=== PATIENT | female | born 1955 | race African-American/Black ===

== ENCOUNTER → 2017-09-08 | Outpatient (CLI) | payer OTHER | LOC: FIMAGING 08:20 | DX: Z12.31 Encounter for screening mammogram for malignant neoplasm of breast (principal) ==

== ENCOUNTER 2018-06-09 20:52 | Observation (INO) | payer OTHER ==
--- NOTE | 2018-06-09 21:13 | EDPHY ---
H & P Stated Complaint: right side CP that radiates to right arm and jaw Time Seen by Provider: 06/09/18 21:13 - Personal History Current Tetanus/Diphtheria Vaccine: Yes Current Tetanus Diphtheria and Acellular Pertussis (TDAP): Yes - Medical/Surgical History Hx Asthma: No Hx Chronic Respiratory Disease: No Hx Diabetes: No Hx Cardiac Disease: Yes Hx Renal Disease: No Hx Cirrhosis: No Hx Alcoholism: No Hx HIV/AIDS: No Hx Splenectomy or Spleen Trauma: No Other PMH: dextrocardia with situs inversus, lupus, grave disease - Social History Smoking Status: Never smoked Constitutional: Initial Vital Signs Temperature (C) 37.0 C 06/09/18 20:53 Heart Rate 79 06/09/18 20:53 Respiratory Rate 16 06/09/18 20:53 Blood Pressure 164/99 H 06/09/18 20:53 O2 Sat (%) 94 06/09/18 20:53 O2 Delivery Mode Room Air Allergies/Adverse Reactions: No Known Allergies Allergy (Unverified 06/09/18 20:57) Home Medications: Medication Instructions Recorded Amlodipine Besylate 06/09/18 Medical Decision Making - Diagnostics Imaging Results: Imaging Impressions Chest X-Ray 06/09/18 21:15 Impression: No evidence for acute cardiopulmonary abnormality. Situs inversus. Imaging: I viewed and interpreted images myself ED Course/Re-evaluation: CHIEF COMPLAINT: Chest pain HISTORY OF PRESENT ILLNESS: The patient is a 62 y/o female with a history of dextrocardia with situs inversus, lupus, hypertension, and grave's disease complaining of chest pain radiating up her jaw and down her right arm onset 3-4 hours ago. These symptoms started when she was sitting down at rest. She then developed a tightness in the middle of her chest. Currently she has no pain. 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 No fever, headache, body aches, lightheadedness, chest pain, heart palpitations, shortness of breath, cough, abdominal pain, urinary or bowel complaints, numbness, paresthesias. REVIEW OF SYSTEMS: A comprehensive 10 system review of systems is otherwise negative aside from elements mentioned in the history of present illness and medical decision making. PHYSICAL EXAM: HR, BP, O2 Sat, RR. Temp noted General Appearance: Alert, well hydrated, appropriate, and non-toxic appearing. Head: Atraumatic without scalp tenderness or obvious injury Eyes: Pupils equal, round, reactive to light and accommodation, EOMI, no trauma , no injection. Ears: Clear bilaterally, no perforation, normal landmarks Nose: Atraumatic, no rhinorrhea, clear. Throat: There is no erythema or exudates, no lesions, normal tonsils, mucus membranes moist. Neck: Supple, 2+ carotid upstroke, nontender, no lymphadenopathy. Respiratory: No retractions, no distress, no wheezes, and no accessory muscle use. Lungs are clear to auscultation bilaterally. Cardiovascular: Regular rate and rhythm, no murmurs, rubs, or gallops. Bilateral carotid, radial, dorsalis pedis, and posterior tibial pulses intact. Good capillary refill all extremities. Gastrointestinal: Abdomen is soft, nontender, non-distended, no masses, no rebound, no guarding, no peritoneal signs. Musculoskeletal: Normal active ROM of all extremities, atraumatic. Neurological: Alert, appropriate, and interactive. The patient has normal DTRs and non-focal cranial nerves, motor, sensory, and cerebellar exam. Skin: No rashes, good turgor, no nodules on palpation. Past medical history: Dextrocardia with situs inversus, lupus, grave disease, hypertension Past surgical history: Denies Family history: Father had [place] Social history: at bedside, employed, lives in [place] DIAGNOSTICS/PROCEDURES/CRITICAL CARE TIME: EKG: The 12 lead EKG was interpreted by myself as sinus rhythm with a rate of [address] elevation. See hard copy and/or "tracemaster" electronic copy for interpretation. EKG with switched leads: EKG: The 12 lead EKG was interpreted by myself as sinus rhythm with a rate of 75. See hard copy and/or "tracemaster" electronic copy for interpretation. Chest x-ray: No evidence for acute cardiopulmonary abnormality. Situs inversus. DIFFERENTIAL DIAGNOSIS: The differential diagnosis for the patient's chest pain included but was not limited to myocardial ischemia, pulmonary embolus, chest wall pain, pleural inflammation, and pulmonary infectious causes. MEDICAL DECISION MAKING: The patient is a 62 y/o female with a history of dextrocardia with situs inversus, lupus, hypertension and grave's disease presenting with chest pain radiating up her jaw and down her right arm onset 3-4 hours ago. These symptoms started when she was sitting down at rest. She then developed a tightness in the middle of her chest. Currently she has no pain. She has a normal physical exam. Labs, chest x-ray, and EKG ordered; 324mg PO Aspirin administered. 2121: I reviewed patient's EKG as sinus rhythm with a rate of [address] elevation. Troponin and chest x-ray still pending. 2140: Patient's troponin is 0; I will page the armorer technician regarding this patient. 2141: I consulted with Dr. Wing, armorer technician, regarding this patient. He will consult on this patient during her admission. We will repeat the EKG with switched leads. 2150: Patient's repeat EKG reveals sinus rhythm with a rate of 75. 2210: I consulted with the hospitalist service, Dr. Copeland accepts admission of this patient. 5: Reassessed patient and discussed imaging and laboratory findings. I have also discussed plan for admission, which she is comfortable with. - Data Points Laboratory Results: Laboratory Results 06/09/18 21:30 06/09/18 21:30 06/09/18 06/09/18 06/09/18 21:31 21:30 21:30 WBC RBC Hgb Hct MCV MCH MCHC RDW Plt Count MPV Neut % (Auto) Lymph % (Auto) [place] % (Auto) Eos % (Auto) Baso % (Auto) Nucleat RBC Rel Count Absolute Neuts (auto) Absolute Lymphs (auto) Absolute Monos (auto) Absolute Eos (auto) Absolute Basos (auto) Absolute Nucleated RBC Immature Gran % Immature Gran # D-Dimer 0.27 ug/mLFEU ug/mLFEU (0.00-0.50) Sodium 140 mEq/L mEq/L (135-145) Potassium 3.8 mEq/L mEq/L (3.5-5.2) Chloride 105 mEq/L mEq/L (97-110) Carbon Dioxide 25 mEq/l mEq/l (22-31) Anion Gap 10 mEq/L mEq/L (6-14) BUN 22 mg/dL mg/dL (7-23) Creatinine 0.8 mg/dL mg/dL (0.6-1.0) Estimated GFR > 60 Glucose 91 mg/dL mg/dL (70-100) Calcium 9.9 mg/dL mg/dL (8.5-10.4) POC Troponin I 0.00 ng/mL ng/mL (0.00-0.08) NT-Pro-B Natriuret Pep 33 pg/mL pg/mL (0-125) 06/09/18 21:30 WBC 7.71 10^3/uL 10^3/uL (3.80-9.50) RBC 4.87 10^6/uL 10^6/uL (4.18-5.33) Hgb 13.7 g/dL g/dL (12.6-16.3) Hct 38.4 % % (38.0-47.0) MCV 78.9 fL L fL (81.5-99.8) MCH 28.1 pg pg (27.9-34.1) MCHC 35.7 g/dL g/dL (32.4-36.7) RDW 12.9 % % (11.5-15.2) Plt Count 273 10^3/uL 10^3/uL (150-400) MPV 8.7 fL fL (8.7-11.7) Neut % (Auto) 48.9 % % (39.3-74.2) Lymph % (Auto) 39.8 % % (15.0-45.0) [place] % (Auto) 8.9 % % (4.5-13.0) Eos % (Auto) 1.4 % % (0.6-7.6) Baso % (Auto) 0.9 % % (0.3-1.7) Nucleat RBC Rel Count 0.0 % % (0.0-0.2) Absolute Neuts (auto) 3.76 10^3/uL 10^3/uL (1.70-6.50) Absolute Lymphs (auto) 3.07 10^3/uL H 10^3/uL (1.00-3.00) Absolute Monos (auto) 0.69 10^3/uL 10^3/uL (0.30-0.80) Absolute Eos (auto) 0.11 10^3/uL 10^3/uL (0.03-0.40) Absolute Basos (auto) 0.07 10^3/uL 10^3/uL (0.02-0.10) Absolute Nucleated RBC 0.00 10^3/uL 10^3/uL (0-0.01) Immature Gran % 0.1 % % (0.0-1.1) Immature Gran # 0.01 10^3/uL 10^3/uL (0.00-0.10) D-Dimer Sodium Potassium Chloride Carbon Dioxide Anion Gap BUN Creatinine Estimated GFR Glucose Calcium POC Troponin I NT-Pro-B Natriuret Pep Medications Given: Discontinued Medications Aspirin (Aspirin) 324 mg PO EDNOW ONE Stop: 06/09/18 21:23 Last Admin: 06/09/18 21:41 Dose: 324 mg Point of Care Test Results: Chemistry 06/09/18 21:31 POC Troponin I 0.00 ng/mL ng/mL (0.00-0.08) Departure - Departure Disposition: [facility] Inpatient Acute Clinical Impression: Chest pain Qualifiers: Chest pain type: other chest pain Qualified Code(s): R07.89 - Other chest pain Condition: Fair Referrals: NONE *PRIMARY CARE P,. [Primary Care Provider] - As per Instructions Report Scribed for: Jose Shaw Report Scribed by: Lorena Alston Date of Report: 06/09/18 Time of Report: 21:15
[2018-06-09] MEDS ORDERED: ASPIRIN 81 MG CHEWABLE TAB PO ONE (21:22)
[2018-06-09 21:41] LABS: PLATELET COUNT 273 10^3/uL (150-400)
--- NOTE | 2018-06-09 22:01 | CPEKG ---
Test Reason : OPEN Blood Pressure : / mmHG Vent. Rate : 075 BPM Atrial Rate : 077 BPM P-R Int : 176 ms QRS Dur : 102 ms QT Int : 399 ms P-R-T Axes : 122 098 166 degrees QTc Int : 446 ms Sinus rhythm Probable lateral infarct, age indeterminate Confirmed by Jose Shaw ([id number]) on 06/09/2018 10:01:09 PM Referred By: Jose Shaw Confirmed By:Jose Shaw
[2018-06-09] MEDS ORDERED: LORazepam 0.5 MG TAB PO PRN (22:19)
[2018-06-09] MEDS ORDERED: ONDANSETRON 4 MG/2 ML VIAL IVP PRN (22:19)
[2018-06-09] MEDS ORDERED: ACETAMINOPHEN 325 MG TAB PO PRN (22:19)
[2018-06-09] MEDS ORDERED: ONDANSETRON DISINTEGRATING 4 MG TAB PO PRN (22:19)
[2018-06-09] MEDS ORDERED: NITROGLYCERIN 0.4 MG BTL SL PRN (22:23)
[2018-06-09] MEDS ORDERED: NS 1,000 ML IV SCH (22:30)
--- NOTE | 2018-06-10 08:33 | PDGENHP ---
History and Physical - Chief Complaint Right-sided chest pain - History of Present Illness Source-pleasant 62-year-old female with past medical history significant for sinus inversus and dextrocardia, HTN, lupus, graves disease who presents emergency department today with complaints of right-sided chest pain. Patient presents with 3-4 hours of intermittent stuttering right-sided chest squeezing sensation with associated tingling to her right arm. Patient initially thought the tingling felt similar to her experience with a right frozen shoulder remotely however when the intermittent chest pain with sustained she became increasingly concerned and presented to the ED. Patient was at rest sitting on the couch when her symptoms started. They are not worsened with exertion. Patient notes discomfort to be 3 to 4/10. Patient's pain started approximately 5:00 p.m. She denies any associated shortness of breath, cough, fevers, dizziness. She did note that she did feel a little chilled earlier in the day and developed a headache shortly after nitroglycerin but this did resolve. Family history is positive for CAD in her father but she can't recall how old he was with his CT. Patient reports that she had a stress test several years ago which was normal. She also had EKG completed last year which she is able to the pull up on her phone. It did show a sinus rhythm with subtle T-wave inversions in the precordial leads. 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 Patient reports that she was previously on lisinopril. She did develop a cough. She was changed amlodipine developed lower extremity edema. Ultimately patient was placed back on amlodipine. Shortly after arrival to the ED, patient reported persistent right-sided chest pain occurring in waves with her approximately every 12 min. He was given a dose of nitroglycerin without significant change in her symptoms. Patient had improvement in her blood pressure and a slight decrease in her heart rate but no change in her symptoms. Patient was also are for morphine and decline. History Information - Allergies/Home Medication List Allergies/Adverse Reactions: No Known Allergies Allergy (Unverified 06/09/18 20:57) Home Medications: Amlodipine Besylate 06/09/18 [Last Taken Unknown] I have personally reviewed and updated: family history, medical history, social history, surgical history - Past Medical History Additional medical history: HTN, lupus, dextrocardia with situs inversus, Graves disease, shingles 2018, right frozen shoulder resolved - Surgical History Additional surgical history: thyroglossal duct removal - Family History Additional family history: father - CT, CVA. mgm - CVA. multiple family members with HTN - Social History Smoking Status: Never smoked Alcohol Use: None Drug Use: None Additional social history: Patient is . Cor status-full Review of Systems Review of Systems: ROS: 10pt was reviewed & negative except for what was stated in HPI & below Constitutional: Reports: chills. Denies: fever, recent illness Cardiac: Reports: chest pain (see hpi) Respiratory: Reports: no symptoms Gastrointestinal: Reports: no symptoms Physical Exam Physical Exam: Selected Entries 06/09/18 20:53 Blood Pressure Automatic Method Heart Rate 79 Respiratory 16 Rate O2 Sat (%) 94 Temperature (C) 37.0 C Blood Pressure 164/99 H Mean Arterial 120 H Pressure (MAP) O2 Delivery Room Air Mode Temperature Oral Source Temp Pulse Resp BP Pulse Ox 36.5 C 61 17 107/78 96 06/10/18 07:41 06/10/18 07:41 06/10/18 07:41 06/10/18 07:41 06/10/18 07:41 Constitutional: no apparent distress, appears nourished, other (NAD. Pleasant adult female is resting comfortably in bed. at bedside.) Eyes: PERRL, anicteric sclera, EOMI, No scleral injection Ears, Nose, Mouth, Throat: moist mucous membranes, other (No nasal discharge.), No poor dentition Cardiovascular: regular rate and rhythym, no murmur, rub, or gallop, pulses symmetric bilaterally, No edema Peripheral Pulses: 2+: dorsalis-pedis (R), dorsalis-pedis (L) Respiratory: no respiratory distress, no rales or rhonchi, clear to auscultation , No inspiratory crackles Gastrointestinal: normoactive bowel sounds, soft, non-tender abdomen, no palpable masses, No distension Genitourinary: no bladder tenderness, No parekh in urethra Skin: warm, normal color, no rashes or abrasions Musculoskeletal: full muscle strength, other (Moves all extremities. Grossly normal strength.), No generalized weakness Neurologic: AAOx3, sensation intact bilaterally, other (Grossly nonfocal exam.) , No facial droop Psychiatric: interacting appropriately, not anxious, not encephalopathic, thought process linear, other (Thought process content and questions are all appropriate. Patient is pleasant and cooperative.) Lab Data & Imaging Review 06/09/18 21:30 06/10/18 03:10 WBC 7.71 10^3/uL (3.80-9.50) 06/09/18 21:30 RBC 4.87 10^6/uL (4.18-5.33) 06/09/18 21:30 Hgb 13.7 g/dL (12.6-16.3) 06/09/18 21:30 Hct 38.4 % (38.0-47.0) 06/09/18 21: MCV 78.9 fL (81.5-99.8) L 06/09/18 21: MCH 28.1 pg (27.9-34.1) 06/09/18 21: MCHC 35.7 g/dL (32.4-36.7) 06/09/18 21:30 RDW 12.9 % (11.5-15.2) 06/09/18 21: Plt Count 273 10^3/uL (150-400) 06/09/18 21: MPV 8.7 fL (8.7-11.7) 06/09/18 21: Neut % (Auto) 48.9 % (39.3-74.2) 06/09/18 21: Lymph % (Auto) 39.8 % (15.0-45.0) 06/09/18 21:30 [place] % (Auto) 8.9 % (4.5-13.0) 06/09/18 21:30 Eos % (Auto) 1.4 % (0.6-7.6) 06/09/18 21: Baso % (Auto) 0.9 % (0.3-1.7) 06/09/18 21: Nucleat RBC Rel Count 0.0 % (0.0-0.2) 06/09/18 21: Absolute Neuts (auto) 3.76 10^3/uL (1.70-6.50) 06/09/18 21:30 Absolute Lymphs (auto) 3.07 10^3/uL (1.00-3.00) H 06/09/18 21:30 Absolute Monos (auto) 0.69 10^3/uL (0.30-0.80) 06/09/18 21:30 Absolute Eos (auto) 0.11 10^3/uL (0.03-0.40) 06/09/18 21:30 Absolute Basos (auto) 0.07 10^3/uL (0.02-0.10) 06/09/18 21:30 Absolute Nucleated RBC 0.00 10^3/uL (0-0.01) 06/09/18 21:30 Immature Gran % 0.1 % (0.0-1.1) 06/09/18 21:30 Immature Gran # 0.01 10^3/uL (0.00-0.10) 06/09/18 21:30 D-Dimer 0.27 ug/mLFEU (0.00-0.50) 06/09/18 21:30 Sodium 141 mEq/L (135-145) 06/10/18 03:10 Potassium 3.6 mEq/L (3.5-5.2) 06/10/18 03:10 Chloride 107 mEq/L (97-110) 06/10/18 03:10 Carbon Dioxide 24 mEq/l (22-31) 06/10/18 03:10 Anion Gap 10 mEq/L (6-14) 06/10/18 03:10 BUN 17 mg/dL (7-23) 06/10/18 03:10 Creatinine 0.7 mg/dL (0.6-1.0) 06/10/18 03:10 Estimated GFR > 60 06/10/18 03:10 Glucose 91 mg/dL (70-100) 06/10/18 03:10 Calcium 9.1 mg/dL (8.5-10.4) 06/10/18 03:10 Magnesium 2.0 mg/dL (1.6-2.3) 06/10/18 03:10 POC Troponin I 0.00 ng/mL (0.00-0.08) 06/09/18 21:31 Troponin I < 0.012 ng/mL (0.000-0.034) 06/10/18 03:10 NT-Pro-B Natriuret Pep 33 pg/mL (0-125) 06/09/18 21:30 Imaging Review: Chest, PA and lateral. History: Chest pain. History of dextrocardia and situs inversus. History: Heart is right-sided and normal in size. Stomach bubble is seen on the right and liver shadow on the left. Lungs are clear. No evidence for pleural effusion or pneumothorax. No stomach and osseous abnormality. Impression: No evidence for acute cardiopulmonary abnormality. Situs inversus. Dictated By: Karl Dawn MD Visualized and Interpreted Chest x-ray results: Yes Chest X-Ray results: no infiltrate, other (dextrocardia see above) Visualized and Interpreted EKG results: Yes EKG additional interpertation: Initial EKG completed at 2121 - showed normal sinus rhythm with diffuse T-wave inversions and ST elevations in the lateral leads. Repeated EKG at 9:51 p.m. In reverse lead position - showed normal sinus rhythm in the 70s with PVCs. No acute ST changes. Patient was able to provide a an EKG from 08/2017 - showed normal sinus rhythm with similar findings of T-wave inversions and ST elevation lateral leads similar to the initial EKG as noted above. Assessment & Plan Assessment: pleasant 62-year-old female with past medical history significant for sinus inversus and dextrocardia, HTN, lupus, graves disease Chest pain (Acute) - status post aspirin in the ED. patient HEART score 3. Plan for serial enzymes. Anticipate stress testing will await Cardiology recommendations. They were consulted from the emergency department will plan to see the patient this morning. Will repeat a reverse lead EKG in the morning. Patient was given a dose of nitroglycerin without improvement of her symptoms and declined any additional medications at this time. During a follow- up visit to review comparison EKGs with patient she reported that her chest discomfort had completely resolved. benign essential HTN - blood pressures slightly elevated. Resume patient's amlodipine. lupus - patient is not on any immunomodulator therapy. Sides and versus/dextrocardia. FEN - hold off IV fluids at this time. Electrolyte monitoring replacement if needed. NPO status after midnight. PPX-SCDs. Anticoagulation if patient should stay additional day. Cor status-full Disposition-patient admitted observation status on the PCU floor for close cardiac monitoring pending additional evaluation recommendations per Cardiology. Please note date of service is June 09, 2018. late entry note.
--- NOTE | 2018-06-10 10:41 | PDCARCONS ---
Cardiology Consult Reason for Consult: Chest discomfort Chief Complaint: Chest discomfort with associated symptoms Requesting Physician: Hospitalist team History of Present Illness: Patient is a 62 y/o female with history of Lupus (diagnosed at [facility] given some issues with markers), right sided frozen shoulder history, HTN (on CCB therapy), elevated HLP (but not currently on therapy), and dextrocardia, who presented to [facility] ER with complaint of chest discomfort noted yesterday. Symptoms began yesterday, and were noted throughout the day ( has a diary of the symptoms and the times). Duration of each of the events was <10 seconds (with the exception of one event during the day). Associated symptoms being right shoulder pains as well as right sided jaw pain (keeping in mind that the patient has dextrocardia). Chest location is right sided to substernal. No nausea, diaphoresis, or shortness of breath with the events. No PND or orthopnea. In the past, lower extremity swelling was noted (and thought to be secondary to the CCB therapy). Amlodipine therapy has been successful for blood pressure management, but ACEi therapy did not work. Elevation in cholesterol has been appreciated over the last three years, but no therapy has been started. Stress testing over ten years ago as part of routine physical exam (no pathology was noted). Holter monitor for palpitations (also many years ago) without more than PAC/PVCs noted (based on patient's description of findings). Moderate degree of stress - patient with recent defending of paper for school - with limited sleep noted, and what sounds like very little (to no) regular exercise. Initial ECG in the ER was incorrectly performed (with her history of dextrocardia), but follow up ECG was normal. No cardiac biomarker elevation (X2 ) was noted. At present, the patient has been symptom free (since about midnight to one am). was present with the patient in the room today. History Information - Allergies/Home Medication List Allergies/Adverse Reactions: No Known Allergies Allergy (Unverified 06/09/18 20:57) Home Medications: amLODIPine BESYLATE [Norvasc 5 mg (*)] 5 mg PO DAILY 06/09/18 [Last Taken ] Carbamide Peroxide [Debrox Ear drops (*)] 1 drop EACHEAR BID PRN 06/10/18 [Last Taken Unknown] Herbals/Supplements -Info Only 1 ea PO DAILY 06/10/18 [Last Taken Unknown] I have personally reviewed and updated: family history, medical history, social history, surgical history Past Medical History: - Past Medical History hypertension, hyperlipidemia (possible, not on therapy) Additional medical history: Lupus - Surgical History Reports: no pertinent surgical hx - Family History Positive for: CAD, stroke - Social History Smoking Status: Never smoked Alcohol Use: None Drug Use: None Cardiac History - Cardiac History Cardiac Risk Factors: hypertension (>140/90), lipidemia Timing/Duration: Days Severity: moderate Severity Scale: 6 Location: substernal, shoulder Activities at Onset: none Modifying Factors: improves with: nitroglycerin, rest Associated Symptoms: chest pain BROOKE Risk Evaluation age greater or equal to 65: no greater or equal to 3 CAD risk factors: no known CAD(stenosis greater or eqaul to 50%): no ASA use in past 7 days: no severe angina(greater or equal to 2 episodes in 24hrs): no EKG ST changes greater or equal to 0.5mm: no positive cardiac marker: no Total Score: 0 BROOKE Score: 4.7% risk Physical Exam Physical Exam: Temp Pulse Resp BP Pulse Ox 36.5 C 61 17 107/78 96 06/10/18 07:41 06/10/18 07:41 06/10/18 07:41 06/10/18 07:41 06/10/18 07:41 Constitutional: no apparent distress, appears nourished, not in pain Eyes: PERRL, EOMI Ears, Nose, Mouth, Throat: moist mucous membranes, hearing normal, ears appear normal Cardiovascular: regular rate and rhythym, no murmur, rub, or gallop, pulses symmetric bilaterally, No systolic murmur, No diastolic murmur, No JVD, No edema Peripheral Pulses: 2+: dorsalis-pedis (R), dorsalis-pedis (L) Respiratory: no respiratory distress, no rales or rhonchi, clear to auscultation Gastrointestinal: normoactive bowel sounds Skin: warm, normal color Musculoskeletal: full muscle strength, normal joint ROM Neurologic: AAOx3, sensation intact bilaterally, CN II-XII Intact Psychiatric: interacting appropriately, not anxious, not encephalopathic Lab and Imaging 06/09/18 21:30 06/10/18 03:10 WBC 7.71 10^3/uL (3.80-9.50) 06/09/18 21:30 RBC 4.87 10^6/uL (4.18-5.33) 06/09/18 21:30 Hgb 13.7 g/dL (12.6-16.3) 06/09/18 21:30 Hct 38.4 % (38.0-47.0) 06/09/18 21:30 MCV 78.9 fL (81.5-99.8) L 06/09/18 21:30 MCH 28.1 pg (27.9-34.1) 06/09/18 21: MCHC 35.7 g/dL (32.4-36.7) 06/09/18: RDW 12.9 % (11.5-15.2) 06/09/18 21:30 Plt Count 273 10^3/uL (150-400) 06/09/18 21:30 MPV 8.7 fL (8.7-11.7) 06/09/18 21:30 Neut % (Auto) 48.9 % (39.3-74.2) 06/09/18 21:30 Lymph % (Auto) 39.8 % (15.0-45.0) 06/09/18 21:30 [place] % (Auto) 8.9 % (4.5-13.0) 06/09/18 21:30 Eos % (Auto) 1.4 % (0.6-7.6) 06/09/18: Baso % (Auto) 0.9 % (0.3-1.7) 06/09/18 21:30 Nucleat RBC Rel Count 0.0 % (0.0-0.2) 06/09/18 21:30 Absolute Neuts (auto) 3.76 10^3/uL (1.70-6.50) 06/09/18 21:30 Absolute Lymphs (auto) 3.07 10^3/uL (1.00-3.00) H 06/09/18 21:30 Absolute Monos (auto) 0.69 10^3/uL (0.30-0.80) 06/09/18 21:30 Absolute Eos (auto) 0.11 10^3/uL (0.03-0.40) 06/09/18 21:30 Absolute Basos (auto) 0.07 10^3/uL (0.02-0.10) 06/09/18 21:30 Absolute Nucleated RBC 0.00 10^3/uL (0-0.01) 06/09/18 21:30 Immature Gran % 0.1 % (0.0-1.1) 06/09/18 21:30 Immature Gran # 0.01 10^3/uL (0.00-0.10) 06/09/18 21:30 D-Dimer 0.27 ug/mLFEU (0.00-0.50) 06/09/18 21:30 Sodium 141 mEq/L (135-145) 06/10/18 03:10 Potassium 3.6 mEq/L (3.5-5.2) 06/10/18 03:10 Chloride 107 mEq/L (97-110) 06/10/18 03:10 Carbon Dioxide 24 mEq/l (22-31) 06/10/18 03:10 Anion Gap 10 mEq/L (6-14) 06/10/18 03:10 BUN 17 mg/dL (7-23) 06/10/18 03:10 Creatinine 0.7 mg/dL (0.6-1.0) 06/10/18 03:10 Estimated GFR > 60 06/10/18 03:10 Glucose 91 mg/dL (70-100) 06/10/18 03:10 Calcium 9.1 mg/dL (8.5-10.4) 06/10/18 03:10 Magnesium 2.0 mg/dL (1.6-2.3) 06/10/18 03:10 POC Troponin I 0.00 ng/mL (0.00-0.08) 06/09/18 21:31 Troponin I < 0.012 ng/mL (0.000-0.034) 06/10/18 09:00 NT-Pro-B Natriuret Pep 33 pg/mL (0-125) 06/09/18 21:30 Visualized and Interpreted Chest x-ray results: Yes Chest X-ray Interpretation: no infiltrate, normal, normal heart size Visualized and Interpreted EKG results: Yes EKG Interpretation: Positive for: normal sinsus rhythm, NS ST wave abnormalities Telemetry: normal sinus rhythm A/P Assessment: Patient is a 62 y/o female with history of Lupus, HTN, HLP (untreated), and dextrocardia, who presented to [facility] with complaints of right sided chest pains and associated symptoms (jaw pains, shoulder pains, and right arm pains). No cardiac biomarker elevation has been noted. Initial ECG (as if the patient's heart was directed leftward) with minimal ST elevations noted. Follow up ECG ( performed correctly) with non specific ST/T wave changes noted. ASCVD risk is elevated above 7.5% (with some assumptions about cholesterol given a lack of this data acutely). Plan: (1) Nuclear stress testing with exercise given patient's past history and symptoms (2) Maintain therapy on CCB for HTN control (3) Would obtain cholesterol labs to determine if more is needed with respect to CV risks (4) Further recommendations after testing has been completed
--- NOTE | 2018-06-10 11:50 | ASMTCMCOM ---
CM Note CM Note Notes: 06/10/2018 Case Management Note Discussed pt during rounds this morning. Pt admitted for chest pain. Nuclear stress test planned today. Pt present at bedside. Keshav Goldsmith [phone]. There are no case management d/c needs identified d/t pt age, student status, marital status and independence with ADL's prior to admission. There are no therapy evals ordered today. Case Management d/c poc: independent with follow up as directed. Case Management available if needs change. Date Signed: 06/10/2018 11:49 AM Electronically Signed By:Deysi Smith RN
[2018-06-10] MEDS ORDERED: REGADENOSON 0.4 MG/5 ML SYR IVP ONE (12:27)
--- NOTE | 2018-06-10 12:27 | CPEKG ---
Test Reason : OPEN Blood Pressure : / mmHG Vent. Rate : 075 BPM Atrial Rate : 072 BPM P-R Int : 175 ms QRS Dur : 098 ms QT Int : 417 ms P-R-T Axes : 133 107 178 degrees QTc Int : 466 ms Sinus rhythm Ventricular premature complex Consider right ventricular hypertrophy Abnormal T, consider ischemia, lateral leads Confirmed by Grey Hobbs ([id number]) on 06/10/2018 12:27:17 PM Referred By: Jeanette Copeland Confirmed By:Grey Hobbs
--- NOTE | 2018-06-10 12:32 | CPEKG ---
Test Reason : OPEN Blood Pressure : / mmHG Vent. Rate : 049 BPM Atrial Rate : 048 BPM P-R Int : 175 ms QRS Dur : 089 ms QT Int : 490 ms P-R-T Axes : 048 080 058 degrees QTc Int : 443 ms Sinus bradycardia Nonspecific T abnormalities, anterior and lateral leads Confirmed by Grey Hobbs ([id number]) on 06/10/2018 12:32:11 PM Referred By: Jeanette Copeland Confirmed By:Grey Hobbs
--- NOTE | 2018-06-10 13:40 | CPR ---
[f rep st] NONINVASIVE CARDIAC PROCEDURE REPORT DATE OF PROCEDURE: 06/10/2018 REASON FOR TEST: Chest pain. Resting EKG shows a regular sinus rhythm. She does have cardiodextria. Leads were placed appropriately to the right side. She had no arrhythmia or ischemic changes on her resting EKG. Resting blood pressure 120/78, oxygen saturation 98 %, heart rate 87 and regular. She had no chest pain at the time of treadmill. Stress portion: She was exercised according to the [place] protocol for a total of 8 minutes and 34 seconds. Cardiolite was injected at peak exercise followed by Saline flush. Peak heart rate 140. Repeat blood pressure 146/76. MET level reached was 7.1. There were no ischemic changes. She had no chest pain with exercise and there were no arrhythmias noted. Recovery: She did spontaneously recover her blood pressure, returned to 142/78, heart rate 96 and regular. No arrhythmias. No cardiac ischemia noted. She is pain- free at this time. At this time, she currently is stable for nuclear imaging. Supervising Physician Boom Mock MD /[id number]/MODL MTDD
--- NOTE | 2018-06-10 15:56 | HOSPPROG ---
Hospitalist Progress Note Assessment/Plan: 62-year-old female with past medical history significant for sinus inversus and dextrocardia, HTN, lupus, graves disease Chest pain (Acute) - status post aspirin in the ED. patient HEART score 3. -Negative trop -Negative telemetry -will have stress nuclear today -cards following benign essential HTN - -BP soft today, holding amlodipine. lupus - patient is not on any immunomodulator therapy. Sides and versus/dextrocardia. FEN - NPO currently PPX-SCDs. Cor status-full Disposition-patient admitted observation status on the PCU floor for close cardiac monitoring pending stress nuclear test today. Further reccs pending work up Subjective: no current chest pain. no sob. Objective: Vital Signs Temp Pulse Resp BP Pulse Ox 36.8 C 60 16 123/90 H 95 06/10/18 15:47 06/10/18 15:47 06/10/18 15:47 06/10/18 15:47 06/10/18 15:47 Laboratory Results 06/10/18 03:10 06/09/18 06/10/18 06/11/18 05:59 05:59 05:59 Intake Total 150 Balance 150 - Physical Exam Constitutional: no apparent distress Eyes: PERRL, EOMI Ears, Nose, Mouth, Throat: moist mucous membranes, hearing normal Cardiovascular: No edema Respiratory: no respiratory distress, no rales or rhonchi, clear to auscultation Gastrointestinal: normoactive bowel sounds, soft, non-tender abdomen Skin: warm Neurologic: AAOx3 Psychiatric: interacting appropriately, not anxious, not encephalopathic Lymph, Heme, Immunologic: No petechiae ICD10 Worksheet Patient Problems: Problems Problem Status Onset Chest pain Acute
[2018-06-10] MEDS: amLODIPine BESYLATE 5 MG TAB PO SCH (21:15)
[2018-06-11] MEDS: amLODIPine BESYLATE 5 MG TAB PO SCH (10:07)
--- NOTE | 2018-06-11 10:51 | PDCARPN ---
Cardiology Progress Note Chief Complaint: Patient doing well today, but did have one of her chest discomfort episodes just prior to my visit Assessment/Plan: Assessment: 06-11-18 Patient is doing fair today. She did have another episode of her chest discomfort today (fleeting with right shoulder involvement). was present with the patient today. Stress testing (nuclear) was performed yesterday, but there seems to have been an issue with remembering the patient has dextrocardia. Resting images are pending from this morning. Patient wanting to have follow up in [place] (where the patient lives at present), but good discussion with patient and today about waiting for the results of the stress testing prior to drawing conclusions or coming up with further plans. Patient did relate that in the recent past, MSCT scan was without calcium. 06-10-18 Patient is a 62 y/o female with history of Lupus (diagnosed at [facility] given some issues with markers), right sided frozen shoulder history, HTN (on CCB therapy), elevated HLP (but not currently on therapy), and dextrocardia, who presented to [facility] ER with complaint of chest discomfort noted yesterday. Symptoms began yesterday, and were noted throughout the day ( has a diary of the symptoms and the times). Duration of each of the events was <10 seconds (with the exception of one event during the day). Associated symptoms being right shoulder pains as well as right sided jaw pain (keeping in mind that the patient has dextrocardia). Chest location is right sided to substernal. No nausea, diaphoresis, or shortness of breath with the events. No PND or orthopnea. In the past, lower extremity swelling was noted (and thought to be secondary to the CCB therapy). Amlodipine therapy has been successful for blood pressure management, but ACEi therapy did not work. Elevation in cholesterol has been appreciated over the last three years, but no therapy has been started. Stress testing over ten years ago as part of routine physical exam (no pathology was noted). Holter monitor for palpitations (also many years ago) without more than PAC/PVCs noted (based on patient's description of findings). Moderate degree of stress - patient with recent defending of paper for school - with limited sleep noted, and what sounds like very little (to no) regular exercise. Initial ECG in the ER was incorrectly performed (with her history of dextrocardia), but follow up ECG was normal. No cardiac biomarker elevation (X2 ) was noted. Plan: (1) Await formal read on the Xiao MPI (2) Should there be a small defect, would consider discharge and follow up with cardiology in [place] - especially with improvement of symptoms (3) Should defect be moderate or large in size, would consider angiography for better assessment (4) Would continue therapy on norvasc for HTN Subjective: No cardiovascular complaints today. Awaiting stress test results Reviewed/Discussed With: family, hospitalist Objective: Vital Signs (8 Hrs) Temp Pulse Resp BP Pulse Ox 06/11/18 07:42 36.5 C 73 18 117/73 94 06/11/18 04:00 36.4 C 58 L 15 98/60 L 93 Intake/Output (24 Hrs) 06/10/18 06/11/18 06/12/18 05:59 05:59 05:59 Intake Total 150 450 Balance 150 450 Intake: Oral (ml) 150 450 Other: Weight 61.235 kg Intake Quantity Yes Sufficient Number of Voids Toilet 2 2 Result Diagrams: 06/09/18 21:30 06/10/18 03:10 Cardiac Labs: Cardiac Lab Results (72 Hrs) 06/10/18 06/10/18 09:00 03:10 Troponin I < 0.012 < 0.012 Telemetry: Normal sinus rhythm - Physical Exam Constitutional: WDWN, healthy appearing, no apparent distress Eyes: PERRL, EOMI Ears, Nose, Mouth, Throat: moist mucous membranes Cardiovascular: regular rate and rhythm, no murmurs, no rubs, no gallops Peripheral Pulses: 2+: dorsalis-pedis (R), dorsalis-pedis (L) Respiratory: clear to auscultate bilat, no crackles, no wheezes Gastrointestinal: normoactive bowel sounds Skin: no rashes, no edema Musculoskeletal: no muscular tenderness Neurologic: AAOx3, CN II-XII grossly intact Psychiatric: cooperative, interactive, following commands ICD10 Worksheet Patient Problems: Problems Problem Status Onset Chest pain Acute
[2018-06-11 11:46] VITALS: BP 119/83
--- NOTE | 2018-06-11 12:26 | PDDCSUM ---
Discharge Summary Discharge Summary: HPI/Hospital Course: Patient is a 62 y/o female with history of Lupus, HTN, HLP (untreated), and dextrocardia, who presented to [facility] with complaints of right sided chest pains and associated symptoms (jaw pains, shoulder pains, and right arm pains). No cardiac biomarker elevation has been noted. Initial ECG (as if the patient's heart was directed leftward) with minimal ST elevations noted. Follow up ECG ( performed correctly) with non specific ST/T wave changes noted. She was admitted. She had a Xiao scan stress test with nuclear medicine. Stress test was unremarkable. Nuclear medicine scan showed a fixed anteroseptal perfusion defect which may be a prior infarct or artifact but no evidence of acute ischemia was identified. The patient will f/u with her [employer] in [place] She was seen by our Cardiology team and they have cleared her for discharge DDX Chest pain (Acute) - no e/o ischemia per above benign essential HTN - -cont Amlodipine. lupus - patient is not on any immunomodulator therapy. Dextrocardia Exam: NAD AAOX3 RRR CTAB S/NT/ND MEDS: SEE MED REC TOTAL TIME SPENT ON D/C IS 35 MINS
--- NOTE | 2018-06-11 12:32 | ASMTLACE ---
NAZIA Length of stay for Answers: 1 day current admission Acuity / Level of Answers: No Care: Did the patient have an inpatient admission? Comorbidities - select Answers: Other Notes: HTN; Lupus; Grave's all that apply disease # of Emergency department Answers: 1-2 visits in the last 6 months Score: 3 Date Signed: 06/11/2018 12:31 PM Electronically Signed By:Deysi Smith RN
--- NOTE | 2018-06-11 12:36 | ASDISCHSUM ---
Discharge Information Plan Status:Home with No Needs Medically Cleared to Leave:06/11/2018 Discharge Date:06/11/2018 CM D/C Disposition:Home, Routine, Self-Care ADT D/C Disposition:Home, Routine, Self-Care Projected Discharge Date:06/11/2018 Transportation at D/C:Family Discharge Delay Reason: Follow-Up Date:06/11/2018 Discharge Slot: Final Diagnosis: Placement Information Patient Contact Information Contact Name:ROMAIN Relationship:Jody Address:[id number] Work Phone: City:[place] Alternate Phone: State/Zip Code:[place] [address] Email: Financial Information Financial Class:HMO and PPO Plans Primary Plan Desc:[employer] Primary Plan Number:[id number] Secondary Plan Desc: Secondary Plan Number: Assessment Information LACE LACE Length of stay for Answers: 1 day current admission Acuity / Level of Answers: No Care: Did the patient have an inpatient admission? Comorbidities - select Answers: Other Notes: HTN; Lupus; Grave's all that apply disease # of Emergency department Answers: 1-2 visits in the last 6 months Score: 3 Date Signed: 06/11/2018 12:31 PM Electronically Signed By:Deysi Smith RN [facility] CM Progress Note CM Note CM Note Notes: 06/10/2018 Case Management Note Discussed pt during rounds this morning. Pt admitted for chest pain. Nuclear stress test planned today. Pt present at bedside. Keshav Goldsmith [phone]. There are no case management d/c needs identified d/t pt age, student status, marital status and independence with ADL's prior to admission. There are no therapy evals ordered today. Case Management d/c poc: independent with follow up as directed. Case Management available if needs change. Date Signed: 06/10/2018 11:49 AM Electronically Signed By:Deysi Smith RN Case Management Discharge Plan Note Case Management Discharge Discharge Order Complete? Answers: Yes Patient to Obtain Answers: Independently Medications Transportation Arranged Answers: Family/Friends Discharge Comments Notes: 06/11/2018 Case Management Note Pt to discharge independent with follow up as directed. Date Signed: 06/11/2018 12:35 PM Electronically Signed By:Deysi Smith RN Intervention Information
== END 2018-06-11 13:29 | disposition home or self-care (01) ==
LOC: F2W 22:50
PROVIDERS: ADMIT Family Medicine; ATTEND Family Medicine
DX: R07.9 Chest pain, unspecified (principal); M32.9 Systemic lupus erythematosus, unspecified; E03.9 Hypothyroidism, unspecified; E78.5 Hyperlipidemia, unspecified; Q24.0 Dextrocardia; I10 Essential (primary) hypertension
CPT/HCPCS: 71046; 78452; 93005; 93017; A9500; G0378; 84484-ER; J2785